=== PATIENT | male | born 1980 | race African-American/Black ===

== ENCOUNTER 2016-09-10 13:39 | Emergency (ER) | payer OTHER ==
[~2016-09-10] VITALS: Ht 165.1 cm; Wt 75.0 kg
[2016-09-10 14:11] LABS: GLUCOSE, URINE (UA) NEGATIVE (NEGATIVE); KETONES,URINE NEGATIVE (NEGATIVE); LEUKOCYTE ESTERASE ,URINE TRACE (NEGATIVE); OCCULT BLOOD,URINE NEGATIVE (NEGATIVE); PH,URINE 5.5 (5.0-8.0); PROTEIN,URINE NEGATIVE (NEGATIVE)
[2016-09-10 14:13] LABS: ADD UA MICROSCOPIC YES; APPEARANCE,URINE HAZY (CLEAR)
[2016-09-10 14:21] LABS: RBC,URINE 0-2 /HPF (0-2); SQUAMOUS EPITHELIAL CELL,UR Rare /LPF (None Seen)
[2016-09-10] MEDS ORDERED: AZITHROMYCIN 250 MG TABLET PO ONE (16:00)
[2016-09-10 16:27] VITALS: BP 148/86
== END 2016-09-10 16:39 | disposition home or self-care (01) ==
LOC: EMS 13:41
DX: N34.2 Other urethritis (principal); I10 Essential (primary) hypertension; F17.210 Nicotine dependence, cigarettes, uncomplicated; F12.90 Cannabis use, unspecified, uncomplicated
CPT/HCPCS: 87086; 99284

== ENCOUNTER 2016-11-19 07:39 | Emergency (ER) | payer OTHER ==
[~2016-11-19] VITALS: Ht 165.1 cm; Wt 77.0 kg
[2016-11-19 08:39] LABS: BASOPHILS # (AUTO) 0.02 K/uL (0.00-0.20); BASOPHILS % (AUTO) 0.3 % (0.0-2.0); EOSINOPHILS # (AUTO) 0.06 K/uL (0.00-0.70); EOSINOPHILS % (AUTO) 1.02 % (1.0-6.0); HEMATOCRIT 46.1 % (41-53); HEMOGLOBIN 15.4 g/dL (13.5-17.5); LYMPHOCYTES % (AUTO) 15.2 % (22.0-44.0); MEAN CORPUSCULAR HEMOGLOBIN 31.5 pg (26.0-34.0); MEAN CORPUSCULAR HGB CONC 33.3 G/dL (31.0-37.0); MEAN CORPUSCULAR VOLUME 95 fL (80-100); MONOCYTES # (AUTO) 0.5 K/uL (0.1-1.0); MONOCYTES % (AUTO) 7.7 % (2.0-9.0); NEUTROPHILS # (AUTO) 4.8 K/uL (1.8-7.7); NEUTROPHILS % (AUTO) 75.7 % (40.0-70.0); PLATELET COUNT (AUTO) 162 K/uL (150-450); RED BLOOD CELL COUNT(AUTO) 4.87 MIL/uL (4.50-5.90); RED CELL DISTRIBUTION WIDTH 12.9 % (11.5-14.5); WHITE BLOOD COUNT (AUTO) 6.3 K/uL (4.5-11.0)
[2016-11-19 08:47] LABS: ANION GAP 5 mmol/L (8-16); CARBON DIOXIDE 29 mmol/L (22-29); CHLORIDE 106 mmol/L (98-107); CREATININE 1.03 mg/dL (0.60-1.30); GLOMERULAR FILTR. RATE CALC > 60 mL/min (>60); POTASSIUM 4.1 mmol/L (3.5-5.1); SODIUM SERUM 140 mmol/L (136-145); UREA NITROGEN, BLOOD 7 mg/dL (7-18)
[2016-11-19 08:55] VITALS: BP 125/72
[2016-11-19 09:12] LABS: ALANINE AMINOTRANSFERASE 26 U/L (12-78); ALBUMIN 3.6 g/dL (3.4-5.0); ASPARTATE AMINOTRANSFERASE 22 U/L (15-37); BILIRUBIN,TOTAL 0.4 mg/dL (0.1-1.0); CREATINE KINASE MB 1.5 ng/mL (0-5); CREATINE KINASE, TOTAL 265 U/L (39-308); TOTAL PROTEIN, SERUM 6.4 g/dL (6.4-8.2)
[2016-11-19 09:15] LABS: B-TYPE NATRIURETIC PEPTIDE 21 pg/mL (0-100)
== END 2016-11-19 09:44 | disposition home or self-care (01) ==
LOC: EMS 07:42
DX: R07.9 Chest pain, unspecified (principal); R06.02 Shortness of breath; F43.9 Reaction to severe stress, unspecified; F12.90 Cannabis use, unspecified, uncomplicated; F17.210 Nicotine dependence, cigarettes, uncomplicated
CPT/HCPCS: 93005; 99285

== ENCOUNTER 2017-05-25 10:21 | Emergency (ER) | payer OTHER ==
[~2017-05-25] VITALS: Ht 165.7 cm; Wt 75.0 kg
[2017-05-25 10:27] VITALS: BP 147/84
== END 2017-05-25 12:01 | disposition left against medical advice (07) ==
LOC: EMS 10:27
DX: R07.9 Chest pain, unspecified (principal); R06.02 Shortness of breath; F17.210 Nicotine dependence, cigarettes, uncomplicated; Z53.21 Procedure and treatment not carried out due to patient leaving prior to being seen by health care provider
CPT/HCPCS: 71020; 93005

== ENCOUNTER 2018-03-31 14:53 | Emergency (ER) | payer OTHER ==
[~2018-03-31] VITALS: Ht 165.1 cm; Wt 76.4 kg
[2018-03-31] MEDS ORDERED: KETOROLAC TROMETHAMINE 10 MG TABLET PO ONE (17:00)
[2018-03-31] MEDS ORDERED: TraMADol HCL 50 MG TABLET PO ONE (17:15)
[2018-03-31 17:17] VITALS: BP 132/81
== END 2018-03-31 17:40 | disposition home or self-care (01) ==
LOC: EMS 14:54
DX: S03.2XXA Dislocation of tooth, initial encounter (principal); I10 Essential (primary) hypertension; F17.210 Nicotine dependence, cigarettes, uncomplicated; F12.90 Cannabis use, unspecified, uncomplicated; X58.XXXA Exposure to other specified factors, initial encounter; Y93.89 Activity, other specified; Y92.89 Other specified places as the place of occurrence of the external cause; Y99.8 Other external cause status
CPT/HCPCS: 99283